=== PATIENT | female | born 1985 | race Caucasian/White ===

== ENCOUNTER 2019-03-27 12:36 | Emergency (ER) | payer OTHER ==
[2019-03-27] MEDS ORDERED: 0.9 % SODIUM CHLORIDE 1,000 ML BAG IV ONE (12:46)
[2019-03-27] MEDS ORDERED: ONDANSETRON HCL IV 4 MG/2 ML VIAL IVP ONE ×2 (12:46→13:38)
--- NOTE | 2019-03-27 12:51 | Emergency Department Record ---
History of Present Illness - General Chief complaint: Nausea, Vomiting, Diarrhea Stated complaint: DIARRHEA,VOMITING, Time Seen by Provider: 03/27/19 12:45 Source: Patient Mode of Arrival: Ambulatory Limitations: No limitations - History of Present Illness Initial comments: 34 yo female presents with nausea, vomiting and diarrhea. The onset was Tuesday. Initially, the symptoms started with the nausea and vomiting. Later in the day the diarrhea started. No obvious blood in either. No recent travel or antibiotics. She has had her gall bladder removed. She has Lupus. She has waves of abdominal pain that is diffuse. She has kept down very little in the last two days. MD complaint: Diarrhea, Nausea, Vomiting -: Days(s) (3) Description of Vomiting: Watery Description of Diarrhea: Water Location: Diffuse Radiation: Other (diffuse) Severity: Moderate Quality: Cramping, Sharp, Stabbing Consistency: Intermittent Improves with: None Worsens with: Eating Associated Symptoms: Loss of appetite - Related Data Home Medications Medication Instructions Recorded Confirmed Last Taken Albuterol Sulfate [Proair Hfa] 1 - 2 puff IH .EVERY 4-6 HOURS PRN 03/27/19 03/27/19 1 Day Ago ~03/26/19 Alprazolam [Xanax] 0.25 mg PO Q8H 03/27/19 03/27/19 1 Day Ago ~03/26/19 Belimumab [Benlysta] 120 mg IV MONTHLY 03/27/19 03/27/19 03/14/19 Cyclobenzaprine HCl [Flexeril] 10 mg PO DAILY 03/27/19 03/27/19 1 Day Ago ~03/26/19 Dicyclomine HCl [Bentyl] 10 mg PO TID PRN 03/27/19 03/27/19 1 Day Ago ~03/26/19 Fluoxetine HCl [Prozac] 20 mg PO DAILY 03/27/19 03/27/19 1 Day Ago ~03/26/19 Hydroxychloroquine Sulfate 200 mg PO DAILY 03/27/19 03/27/19 1 Day Ago [Plaquenil] ~03/26/19 Levocetirizine Dihydrochloride 5 mg PO DAILY 03/27/19 03/27/19 1 Day Ago [Xyzal] ~03/26/19 Levothyroxine Sodium [Synthroid] 100 mcg PO DAILY 03/27/19 03/27/19 1 Day Ago ~03/26/19 Meloxicam [Mobic] 15 mg PO DAILY 03/27/19 03/27/19 1 Day Ago ~03/26/19 Omeprazole 40 mg PO DAILY 03/27/19 03/27/19 1 Day Ago ~03/26/19 Topiramate [Topamax] 25 mg PO DAILY 03/27/19 03/27/19 1 Day Ago ~03/26/19 Previous Rx's Medication Instructions Recorded Ondansetron [Zofran Odt] 4 mg PO Q8H #15 tab.rapdis 03/27/19 Allergies Allergy/AdvReac Type Severity Reaction Status Date / Time amoxicillin Allergy NAUSEA AND Verified 03/27/19 12:52 VOMITING Penicillins Allergy NAUSEA AND Verified 03/27/19 12:52 VOMITING Review of Systems Constitutional: Reports: Malaise, Weakness. Denies: Chills, Fever Eyes: Denies: Eye discharge, Eye pain, Photophobia, Vision change ENT: Denies: Congestion, Throat pain Respiratory: Denies: Cough, Dyspnea Cardiovascular: Denies: Chest pain, Palpitations, Syncope Endocrine: Reports: Fatigue. Denies: Heat or cold intolerance, Polydipsia, Polyuria Gastrointestinal: Reports: Abdominal pain, Diarrhea, Nausea, Vomiting. Denies: Constipation, Hematemesis, Hematochezia, Melena Genitourinary: Denies: Dysuria, Frequency, Urgency Musculoskeletal: Denies: Arthralgia, Back pain, Myalgia, Neck pain Skin: Denies: Bruising, Change in color, Rash Neurological: Denies: Confusion, Headache, Numbness, Weakness Psychiatric: Denies: Anxiety Hematological/Lymphatic: Denies: Easy bleeding, Easy bruising Physical Exam - General General Appearance: Alert, Oriented x3, Cooperative, No acute distress Limitations: No limitations - Head Head exam: Atraumatic, Normal inspection - Eye Eye exam: Normal appearance, PERRL. negative: Conjunctival injection, Scleral icterus - ENT ENT exam: Mucous membranes dry, Normal orophraynx. negative: Mucous membranes moist Ear exam: Normal external inspection Nasal Exam: Normal inspection Mouth exam: Normal external inspection - Neck Neck exam: Normal inspection, Full ROM. negative: Tenderness - Respiratory Respiratory exam: Normal lung sounds bilaterally. negative: Respiratory distress - Cardiovascular Cardiovascular Exam: Normal rhythm, Normal heart sounds, Tachycardia - GI/Abdominal GI/Abdominal exam: Soft, Tenderness (very soft abdomen, diffusely tender no rebound or guarding). negative: Distended, Guarding, Rebound, Rigid - Rectal Rectal exam: Deferred - exam: Deferred - Extremities Extremities exam: negative: Normal inspection, Tenderness - Back Back exam: Denies: CVA tenderness (R), CVA tenderness (L) - Neurological Neurological exam: Alert, Oriented X3 - Psychiatric Psychiatric exam: Normal affect, Normal mood - Skin Skin exam: Dry, Intact, Normal color, Warm Course - Reevaluation(s) Reevaluation #1: 03/27/19 13:22 The CBC was reviewed No acute abnormality 03/27/19 13:37 The CMP was reviewed The HCO3 is 19 The AG is 17 K is 3.3 Lipase is normal HCG is negative 03/27/19 13:39 The results were discussed with the patient She is starting to feel significant improvement. The nausea is not gone but definitely better 03/27/19 14:34 The patient is requesting PO challenge 03/27/19 16:10 The patient has tolerate PO, her nausea and diarrhea are well controlled. The Stool Studies are normal We discussed the results of the tests and questions were answered at the time of discharge. The patient is doing well and is comfortable with DC. DC vitals were reviewed. We discussed at length reasons to immediately return to the ED as well as close follow up. She is to return in the next 12-24 if she goes home and is unable to hydrate We discussed oral hydration strategies for home Medical Decision Making - Lab Data Result diagrams: 03/27/19 13:05 03/27/19 13:05 Disposition Disposition: Discharge Clinical Impression: Diarrhea, Vomiting Disposition: Home, Self-Care Condition: (1) Good Instructions: Acute Nausea and Vomiting (ED), Acute Diarrhea (ED) Additional Instructions: Review this ER visit and the tests performed with your family doctor Return to the ER for a recheck if worse, fever, vomiting, not drinking, or any new concerns or questions Take the prescriptions provided as directed Prescriptions: Ondansetron [Zofran Odt] 4 mg PO Q8H #15 tab.rapdis Forms: Patient Portal Access Time of Disposition: 16:13 Quality - Quality Measures Quality Measures: N/A - Blood Pressure Screening Does Patient Have Any of the Following: No Blood Pressure Classification: Pre-Hypertensive BP Reading Systolic Measurement: 141 Diastolic Measurement: 85 Screening for High Blood Pressure: < Pre-Hypertensive BP, F/U Documented > [G8950] Pre-Hypertensive Follow-up Interventions: Referral to alternative/primary care provider.
[2019-03-27] MEDS ORDERED: ACETAMINOPHEN 1,000 MG/100 ML BTL IVPB ONE (13:09)
[2019-03-27] MEDS: 0.9 % SODIUM CHLORIDE 1000ML 1,000 ML IV ONE ×2 (13:12→14:02)
[2019-03-27 13:15] LABS: ABSOLUTE NEUTROPHIL COUNT 3.26; EOS % 0.5 % (0-6); GRAN % 74.4 % (47-80); HEMATOCRIT 46.3 % (35.0-47.0); HEMOGLOBIN 15.6 gm/dl (11.6-16.0); LYMPH % 17.1 % (16-45); MEAN CELL VOLUME 93.3 fl (81-97); MEAN CORPUSCULAR HEMOGLOBIN 31.5 pg (27-33); MEAN CORPUSCULAR HGB CONC 33.7 g/dl (32-36); MEAN PLATELET VOLUME 10.9 fl (7.4-10.4); PLATELET COUNT 263 K/uL (130-400); RED BLOOD COUNT 4.96 M/uL (3.80-5.40); WHITE BLOOD COUNT W/O DIFF 4.4 K/uL (4.2-12.2)
[2019-03-27 13:26] LABS: BLOOD UREA NITROGEN 14 mg/dL (6-20); CREATININE 0.6 mg/dL (0.5-0.9); EST GLOMERULAR FILTRATION RATE > 60 mL/min; LIPASE 35 U/L (13-60); TOTAL PROTEIN 7.3 g/dL (6.6-8.7)
[2019-03-27 13:28] LABS: GLUCOSE,RANDOM 104 mg/dL (74-109)
[2019-03-27 13:31] LABS: ALB/GLOB RATIO 1.8 (1.1-1.8); ALBUMIN 4.7 g/dL (4.0-5.0); ALKALINE PHOSPHATASE 63 U/L (35-104); ALT/SGPT 19 U/L (<33); AST/SGOT 17 U/L (10.0-35.0)
[2019-03-27 14:02] LABS: URINE APPEARANCE CLEAR; URINE BILIRUBIN SMALL (NEGATIVE); URINE BLOOD MODERATE (NEGATIVE); URINE COLOR YELLOW; URINE GLUCOSE (UA) NEGATIVE (NEGATIVE); URINE KETONE 40 mg/dL (NEGATIVE); URINE LEUKOCYTE ESTERASE NEGATIVE (NEGATIVE); URINE NITRITE NEGATIVE (NEGATIVE); URINE PROTEIN TRACE (NEGATIVE); URINE UROBILINOGEN 0.2 E.U./dL (0.20 - 1.00)
[2019-03-27 14:06] LABS: URINE EPITHELIAL CELLS 0 - 2 (FEW); URINE WBC NONE SEEN (0-2/hpf)
[2019-03-27 14:36] LABS: ROTOVIRUS NOT DETECTED (NOT DETECT)
[2019-03-27 14:51] LABS: CRYPTOSPORIDIUM PARVUM ANTIGEN NOT DETECTED (NOT DETECT)
[2019-03-27] MEDS ORDERED: DEXTROSE 5%-LACTATED RINGERS 1,000 ML IV PRN (15:06)
[2019-03-27 15:15] LABS: MOLECULAR C DIFF TOXIN SCREEN NOT DETECTED (NOT DETECT)
== END 2019-03-27 16:27 | disposition home or self-care (01) ==
LOC: ER 12:36
DX: R19.7 Diarrhea, unspecified (principal); R11.2 Nausea with vomiting, unspecified
CPT/HCPCS: 80053; 81001; 82272; 83690; 84703; 85025; 87329; 87425; 87493; 89055; 96360; 96361; 96374; 96375; 99284; J2405; J7030